=== PATIENT | female | born 2000 | race Two or more races ===

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

== ENCOUNTER 2019-01-05 20:20 | Emergency (ER) | payer OTHER ==
[2019-01-05 20:38] VITALS: RESP 14; TEMP 97.9
[2019-01-05 21:42] LABS: APPEARANCE,URINE Cloudy; BILIRUBIN,URINE NEGATIVE (NEGATIVE); COLOR,URINE Yellow; GLUCOSE, URINE (UA) NEGATIVE (NEGATIVE); KETONES,URINE NEGATIVE (NEGATIVE); LEUKOCYTE ESTERASE ,URINE 3+ (NEGATIVE); NITRATE,URINE NEGATIVE (NEGATIVE); OCCULT BLOOD,URINE 3+ (NEG-TRACE)
[2019-01-05 21:52] LABS: RBC,URINE 15-25 (0-3AV/HPF); WBC,URINE 150-250 (0-5AV/HPF)
[2019-01-05 21:53] LABS: BACTERIA 2+ (< 1+); CRYSTALS NEGATIVE (0-3 AVE/HPF); EPITHELIAL CELLS 0-2 (SQUAMOUS)
[2019-01-05] MEDS ORDERED: CEPHALEXIN 250 MG/5 ML BOTTLE PO ONE (21:55)
[2019-01-05] MEDS ORDERED: CEPHALEXIN 250 MG/5 ML BOTTLE ONE (22:02)
[2019-01-05 22:18] VITALS: BP 124/87; PULSE 83; O2SAT 97
== END 2019-01-05 22:13 | disposition home or self-care (01) | DRG 690 ==
LOC: ED 20:20
DX: N39.0 Urinary tract infection, site not specified (principal)
CPT/HCPCS: 81001; 87077; 87088; 87186; 99282; 99283; A9270-GY

== ENCOUNTER 2019-01-31 23:28 | Emergency (ER) | payer OTHER ==
[2019-02-01] MEDS ORDERED: CLINDAMYCIN HYDROCHLORIDE 150 MG CAP PO ONE (00:28)
[2019-02-01 01:25] VITALS: BP 139/81; PULSE 88; RESP 20; TEMP 98.1; O2SAT 100
[2019-02-01] MEDS ORDERED: AMOXIL/CLAVULANATE 400/5 ML PDR PO ONE (01:25)
[2019-02-01] MEDS ORDERED: AUGMENTIN(FRIDGE) 400 MG/5 ML ONE (01:29)
== END 2019-02-01 01:40 | disposition home or self-care (01) | DRG 159 ==
LOC: ED 23:28
DX: K08.89 Other specified disorders of teeth and supporting structures (principal)
CPT/HCPCS: 99282; A9270-GY